=== PATIENT | female | born 1975 | race Caucasian/White ===

== ENCOUNTER 2023-10-25 12:31 | Inpatient (IN) | payer OTHER ==
[2023-10-25 15:27] LABS: BASO % 0.8 % (0-2.0); EOS % 7.4 % (0-4.5); HEMATOCRIT 36.6 % (32.4-45.2); HEMOGLOBIN 12.6 GM/dL (10.7-15.3); MCH 31.4 pg (25.7-33.7); MCHC 34.5 g/dl (32.0-36.0); MEAN CELL VOLUME 90.8 fl (80-96); MEAN PLT VOLUME 8.8 fl (7.5-11.1); NEUT % 47.8 % (42.8-82.8); PLATELET COUNT 110 10^3/uL (134-434); RBC 4.02 M/mm3 (3.60-5.2)
[2023-10-25 15:48] LABS: POTASSIUM 3.2 mmol/L (3.5-5.1)
[2023-10-25 15:49] LABS: INR 1.52 (0.83-1.09); PROTHROMBIN TIME (PATIENT) 17.6 SEC (9.7-13.0)
[2023-10-25 15:52] LABS: ALBUMIN 2.2 g/dl (3.4-5.0); BLOOD UREA NITROGEN 11.2 mg/dL (7-18)
[2023-10-25 15:55] LABS: CREATININE 0.8 mg/dL (0.55-1.3)
[2023-10-25] MEDS ORDERED: PIPERACILLIN/TAZOB 4.5 GM 4.5 GM/100 ML BAG IVPB ONE (15:55)
[2023-10-25 15:57] LABS: BILIRUBIN,TOTAL 3.1 mg/dL (0.2-1); TOT PROT 6.2 g/dl (6.4-8.2)
[2023-10-25 15:59] LABS: N-TERMINAL BNP 84.7 pg/ml (5-125)
[2023-10-25 16:04] LABS: ERYTHROCYTE SEDIMENTATION RATE 8 mm/hr (0-30)
[2023-10-25] MEDS: PIPERACILLIN/TAZOB 4.5 GM 4.5 GM in DEXTROSE 5%-WATER 100 ML IVPB ONE (16:16)
[2023-10-25] MEDS ORDERED: oxyCODONE HCL 10 MG SUSTAINED ACTING TABLET ONE (16:19)
[2023-10-25] MEDS: oxyCODONE HCL 5 MG TABLET PO PRN (16:25)
[2023-10-25] MEDS: FUROSEMIDE 40 MG/4 ML INJECTABLE VIAL IVPUSH SCH (16:27)
[2023-10-25] MEDS: VANCOMYCIN PREMIX 1.75 GM 1,750 MG/350 ML PIGGYBACK IVPB ONE (17:00)
[2023-10-25] MEDS ORDERED: POTASSIUM CHLORIDE ORAL LIQUID 20 MEQ/15 ML ONE (22:23)
[2023-10-25] MEDS ORDERED: oxyCODONE HCL 5 MG TABLET ONE (22:23)
[2023-10-25] MEDS ORDERED: HEPARIN NA (PORCINE) 5,000 UNITS/ML 1ML VIAL ONE (22:23)
[2023-10-25] MEDS: HEPARIN NA (PORCINE) 5,000 UNITS/ML 1ML VIAL SQ SCH (22:31)
[2023-10-25] MEDS: POTASSIUM CHLORIDE ORAL LIQUID 20 MEQ/15 ML PO SCH (22:31)
[2023-10-26] MEDS ORDERED: PIPERACILLIN/TAZOB 3.375 GM 3.375 GM/50 ML BAG IVPB ONE ×2 (01:33→09:19)
[2023-10-26] MEDS: ZOLPIDEM TARTRATE 5 MG TABLET PO ONE (01:35)
[2023-10-26] MEDS: PIPERACILLIN/TAZOB 3.375 GM 3.375 GM in DEXTROSE 5%-WATER - 50 ML IVPB SCH (01:47)
[2023-10-26] MEDS: cloNIDine HCL 0.1 MG TABLET PO ONE (01:52)
[2023-10-26] MEDS: clonazePAM 0.5 MG TABLET PO ONE (02:01)
[2023-10-26] MEDS ORDERED: oxyCODONE HCL 5 MG TABLET ONE (09:18)
[2023-10-26] MEDS: SPIRONOLACTONE 25 MG TABLET PO SCH (09:22)
[2023-10-26 12:55] LABS: POTASSIUM 4.1 mmol/L (3.5-5.1)
[2023-10-26 13:00] LABS: ALBUMIN 2.4 g/dl (3.4-5.0)
[2023-10-26 13:03] LABS: CREATININE 0.8 mg/dL (0.55-1.3)
[2023-10-26 13:05] LABS: BILIRUBIN,TOTAL 3.3 mg/dL (0.2-1); TOT PROT 6.6 g/dl (6.4-8.2)
[2023-10-26] MEDS ORDERED: ACETAMINOPHEN INJECTION 100 ML IVPB ONE (14:19)
[2023-10-26] MEDS ORDERED: LACTULOSE 20 GM/30 ML UDC (FOR ORAL USE ONLY) ONE (14:19)
[2023-10-26] MEDS: LACTULOSE 20 GM/30 ML UDC (FOR ORAL USE ONLY) PO SCH (14:25)
[2023-10-26] MEDS: ACETAMINOPHEN 1000 MG/100 ML BAG IVPB PRN (14:25)
[2023-10-26] MEDS: POTASSIUM CHLORIDE TABS 20 MEQ TABLET.ER (FP) PO SCH (17:24)
[2023-10-26 17:58] VITALS: BMI 33.0
[2023-10-26] MEDS: clonazePAM 0.5 MG TABLET PO SCH (21:06)
[2023-10-26] MEDS: CALAMINE 8% TOPICAL LOTION 177 ML BOTTLE TP SCH (21:06)
[2023-10-26] MEDS: RIFAXIMIN 550 MG TABLET PO SCH (21:07)
[2023-10-26] MEDS: propRANOLol HCL 10 MG TABLET PO SCH (22:39)
[2023-10-26] MEDS: TOPIRAMATE 25 MG TABLET PO SCH (22:59)
[2023-10-26] MEDS: PRAMIPEXOLE DIHYDROCHLORIDE 0.25 MG TABLET PO SCH (23:00)
[2023-10-27 10:11] LABS: TOTAL IRON BINDING CAPACITY 153 ug/dL (250-450)
[2023-10-27 14:43] LABS: IRON SERUM 112 ug/dL (50-175)
[2023-10-27] MEDS: MEROPENEM 1 GM in DEXTROSE 5%-WATER 100 ML IVPB SCH (14:52)
[2023-10-27] MEDS: VANCOMYCIN HCL 1,500 MG in DEXTROSE 5%-WATER - 500 ML IVPB SCH (14:52)
[2023-10-27] MEDS: VANCOMYCIN PREMIX 1.5 GM 1,500 MG/300 ML BAG IVPB SCH (16:30)
[2023-10-27] MEDS ORDERED: ONDANSETRON 4 MG/2 ML VIAL IVPB PRN (17:29)
[2023-10-28] MEDS ORDERED: PIPERACILLIN/TAZOBACTAM 3.375 GM VIAL IVPB ONE (02:57)
[2023-10-28] MEDS: ACETAMINOPHEN 1000 MG/100 ML BAG IVPB PRN (03:03)
[2023-10-28 09:02] LABS: BASO % 1.9 % (0-2.0); EOS % 8.2 % (0-4.5); HEMATOCRIT 35.4 % (32.4-45.2); HEMOGLOBIN 11.8 GM/dL (10.7-15.3); LYMPH % 43.1 % (8-40); MCH 30.7 pg (25.7-33.7); MCHC 33.2 g/dl (32.0-36.0); MEAN CELL VOLUME 92.4 fl (80-96); MEAN PLT VOLUME 8.8 fl (7.5-11.1); MONO % 7.1 % (3.8-10.2); NEUT % 39.7 % (42.8-82.8); PLATELET COUNT 96 10^3/uL (134-434); RBC 3.83 M/mm3 (3.60-5.2); WHITE BLOOD COUNT 4.1 K/mm3 (4.0-10.0)
[2023-10-28 09:19] LABS: POTASSIUM 3.7 mmol/L (3.5-5.1)
[2023-10-28 09:29] LABS: CREATININE 0.8 mg/dL (0.55-1.3)
[2023-10-28 09:30] LABS: BILIRUBIN,TOTAL 2.1 mg/dL (0.2-1); TOT PROT 5.6 g/dl (6.4-8.2)
[2023-10-28] MEDS: oxyCODONE HCL 5 MG TABLET PO PRN (22:08)
[2023-10-28] MEDS ORDERED: ACETAMINOPHEN 1000 MG/100 ML BAG IVPB PRN (22:10)
[2023-10-29] MEDS: AMOX TR/POT CLAV 875MG/125MG TABLETS (FP) PO SCH ×2 (08:34→16:36)
[2023-10-29] MEDS: NITROFURANTOIN MACROCRYSTAL 50 MG CAPSULE (FP) PO SCH (14:35)
[2023-10-29] MEDS: LINEZOLID 600 MG TABLET (RESTRICTED TO ID) PO SCH (15:25)
[2023-10-29] MEDS: ERTAPENEM SODIUM 1 GM VIAL IM SCH (15:28)
[2023-10-29] MEDS: SERTRALINE HCL 50 MG TABLET (FP) PO SCH (18:17)
[2023-10-29] MEDS: ONDANSETRON *ODT* 4 MG TABLET SL ONE (19:57)
[2023-10-30 09:23] LABS: BASO % 1.3 % (0-2.0); EOS % 8.6 % (0-4.5); HEMATOCRIT 35.5 % (32.4-45.2); HEMOGLOBIN 12.2 GM/dL (10.7-15.3); LYMPH % 42.8 % (8-40); MCH 31.2 pg (25.7-33.7); MCHC 34.3 g/dl (32.0-36.0); MEAN CELL VOLUME 90.9 fl (80-96); MEAN PLT VOLUME 8.9 fl (7.5-11.1); MONO % 10.1 % (3.8-10.2); NEUT % 37.2 % (42.8-82.8); PLATELET COUNT 95 10^3/uL (134-434); RBC 3.91 M/mm3 (3.60-5.2); RDW 15.1 % (11.6-15.6); WHITE BLOOD COUNT 4.5 K/mm3 (4.0-10.0)
[2023-10-30 09:51] LABS: POTASSIUM 3.7 mmol/L (3.5-5.1)
[2023-10-30 09:56] LABS: BLOOD UREA NITROGEN 14.4 mg/dL (7-18); CALCIUM 8.6 mg/dL (8.5-10.1)
[2023-10-30 09:59] LABS: CREATININE 0.7 mg/dL (0.55-1.3)
[2023-10-30 10:00] LABS: BILIRUBIN,TOTAL 2.4 mg/dL (0.2-1)
[2023-10-30 10:01] LABS: ALBUMIN 2.1 g/dl (3.4-5.0); TOT PROT 5.8 g/dl (6.4-8.2)
[2023-10-30] MEDS: ONDANSETRON 4 MG TABLET PO PRN (12:06)
[2023-10-30] MEDS ORDERED: LIDOCAINE HCL 1%, 10 MG/ML (20ML VIAL) ONE (14:52)
[2023-10-30] MEDS: SUMAtriptan SUCCINATE 50 MG TABLET PO ONE (19:30)
[2023-10-30] MEDS: ACETAMINOPHEN 500 MG TABLET (FP) PO ONE (21:18)
[2023-10-30] MEDS: clonazePAM 0.5 MG TABLET PO ONE (22:21)
[2023-10-31 12:59] VITALS: PULSE 58
[2023-10-31 20:58] VITALS: BP 113/74; TEMP 97.7
[2023-10-31 21:33] VITALS: RESP 20
== END 2023-11-01 03:25 | DRG 603 ==
LOC: JER 12:31 → JERBED 14:39 → J5S 10-26 16:39 → J8W 10-31 14:07
PROVIDERS: ADMIT Internal Medicine; ATTEND Internal Medicine
DX: L03.115 Cellulitis of right lower limb (principal); F11.20 Opioid dependence, uncomplicated; L03.116 Cellulitis of left lower limb; J44.9 Chronic obstructive pulmonary disease, unspecified; E11.9 Type 2 diabetes mellitus without complications; F41.8 Other specified anxiety disorders; E78.5 Hyperlipidemia, unspecified; F31.9 Bipolar disorder, unspecified; B18.2 Chronic viral hepatitis C; G43.909 Migraine, unspecified, not intractable, without status migrainosus; E07.9 Disorder of thyroid, unspecified; D69.6 Thrombocytopenia, unspecified; K74.60 Unspecified cirrhosis of liver; E66.9 Obesity, unspecified; Z68.36 Body mass index [BMI] 36.0-36.9, adult; E87.6 Hypokalemia; B96.20 Unspecified Escherichia coli [E. coli] as the cause of diseases classified elsewhere; G25.81 Restless legs syndrome; S82.831A Other fracture of upper and lower end of right fibula, initial encounter for closed fracture; X58.XXXA Exposure to other specified factors, initial encounter; Y93.9 Activity, unspecified; Y92.9 Unspecified place or not applicable; Y99.9 Unspecified external cause status
CPT/HCPCS: 0241U-QW; 36415; 73590-TC-LT-FY; 73590-TC-RT-FY; 73610-TC-RT-FY; 76700-TC; 80053; 80061; 82140; 82248; 82550; 82607; 83036; 83540; 83550; 83605; 83880; 84443; 84484; 85025; 85610; 85651; 85730; 86140; 86705; 87040; 87070; 87186; 87205; 87340; 87522; 87635; 93005; 93010; 93306-TC; 93925-TC; 93970-TC; 99285-25; G0463-25; J0131; J1644; J3370; Q0162

== ENCOUNTER 2023-12-21 18:56 | Inpatient (IN) | payer OTHER ==
[2023-12-21 19:55] LABS: BASO % 1.1 % (0-2.0); HEMATOCRIT 37.5 % (32.4-45.2); HEMOGLOBIN 12.8 GM/dL (10.7-15.3); LYMPH % 32.3 % (8-40); MCH 30.8 pg (25.7-33.7); MCHC 34.2 g/dl (32.0-36.0); MEAN CELL VOLUME 90.1 fl (80-96); MEAN PLT VOLUME 9.2 fl (7.5-11.1); MONO % 8.2 % (3.8-10.2); NEUT % 54.4 % (42.8-82.8); PLATELET COUNT 149 10^3/uL (134-434); RBC 4.16 M/mm3 (3.60-5.2); RDW 14.4 % (11.6-15.6); WHITE BLOOD COUNT 4.6 K/mm3 (4.0-10.0)
[2023-12-21 20:01] LABS: INR 1.28 (0.83-1.09); PROTHROMBIN TIME (PATIENT) 14.4 SEC (9.7-13.0)
[2023-12-21] MEDS ORDERED: DICYCLOMINE HCL 10 MG CAPSULE ONE (20:02)
[2023-12-21 20:10] LABS: CHLORIDE 101 mmol/L (98-107); POTASSIUM 4.8 mmol/L (3.5-5.1); SODIUM 138 mmol/L (136-145)
[2023-12-21 20:12] LABS: CALCIUM 8.7 mg/dL (8.5-10.1)
[2023-12-21 20:13] LABS: ALBUMIN 2.3 g/dl (3.4-5.0); ANION GAP 4 mmol/L (4-13); CO2 33 mmol/L (21-32); GLUCOSE,RANDOM 136 mg/dL (74-106)
[2023-12-21 20:16] LABS: CREATININE 0.9 mg/dL (0.55-1.3); SGOT/AST 34 U/L (15-37); SGPT/ALT 18 U/L (13-61)
[2023-12-21 20:18] LABS: BILIRUBIN,TOTAL 1.3 mg/dL (0.2-1); TOT PROT 6.7 g/dl (6.4-8.2)
[2023-12-21] MEDS: DICYCLOMINE HCL 20 MG TABLET PO ONE (20:18)
[2023-12-21 20:19] LABS: ALK PHOS 100 U/L (45-117)
[2023-12-21 22:11] LABS: URINE BARBITURATES NEGATIVE (NEGATIVE)
[2023-12-21 22:12] LABS: COCAINE, UR NEGATIVE (NEGATIVE); METHADONE, UR NEGATIVE (NEGATIVE); OPIATES, URI NEGATIVE (NEGATIVE); PHENCYCLIDINE,URINE NEGATIVE (NEGATIVE)
[2023-12-21 22:17] LABS: URINE AMPHETAMINES NEGATIVE (NEGATIVE); URINE BENZODIAZEPINES POSITIVE (NEGATIVE)
[2023-12-21] MEDS: PRAMIPEXOLE DIHYDROCHLORIDE 0.25 MG TABLET PO SCH (22:17)
[2023-12-21] MEDS: propRANOLol HCL 10 MG TABLET PO SCH (22:17)
[2023-12-21] MEDS: LACTULOSE 20 GM/30 ML UDC (FOR ORAL USE ONLY) PO SCH (22:17)
[2023-12-21] MEDS: MELATONIN 5 MG TABLETS PO SCH (22:17)
[2023-12-21] MEDS: BUDESONIDE/FORMETEROL FUMARATE 80/4.5 mcg INHALER IH SCH (22:17)
[2023-12-21] MEDS ORDERED: clonazePAM 0.5 MG TABLET ONE (22:18)
[2023-12-21] MEDS: RIFAXIMIN 550 MG TABLET PO SCH (22:18)
[2023-12-21] MEDS: TOPIRAMATE 25 MG TABLET PO SCH (22:18)
[2023-12-21] MEDS: clonazePAM 0.5 MG TABLET PO SCH (22:22)
[2023-12-22 03:34] VITALS: RESP 18; BMI 34.2
[2023-12-22 06:16] VITALS: BP 102/52; PULSE 59; TEMP 97.5
[2023-12-22] MEDS ORDERED: DESVENLAFAXINE SUCCINATE 25 MG PO SCH (10:00)
[2023-12-22] MEDS: THIAMINE 100 MG TABLET PO SCH (10:16)
[2023-12-22] MEDS: SPIRONOLACTONE 25 MG TABLET PO SCH (10:16)
[2023-12-22] MEDS ORDERED: oxyCODONE HCL 5 MG TABLET PO PRN (10:36)
[2023-12-22] MEDS: NITROFURANTOIN MONOHYD/M-CRYST 100 MG CAPSULE PO SCH (11:48)
== END 2023-12-22 12:36 | DRG 897 ==
LOC: JER 18:56 → JERBED 19:12 → J5S 22:54
PROVIDERS: ADMIT Internal Medicine; ATTEND Internal Medicine
DX: F11.10 Opioid abuse, uncomplicated (principal); G43.909 Migraine, unspecified, not intractable, without status migrainosus; F31.9 Bipolar disorder, unspecified; K74.60 Unspecified cirrhosis of liver; B19.20 Unspecified viral hepatitis C without hepatic coma; E11.9 Type 2 diabetes mellitus without complications; B18.2 Chronic viral hepatitis C; J44.9 Chronic obstructive pulmonary disease, unspecified; E78.5 Hyperlipidemia, unspecified; F41.9 Anxiety disorder, unspecified; G89.29 Other chronic pain
CPT/HCPCS: 36415; 71045-TC-FY; 80053; 80307; 85025; 85610; 85730; 87086; 87186; 93005; 93010; 99285-25

== ENCOUNTER 2024-01-05 03:00 | Inpatient (IN) | payer OTHER ==
[2024-01-05] MEDS ORDERED: ACETAMINOPHEN INJECTION 100 ML IVPB ONE (03:53)
[2024-01-05] MEDS: ACETAMINOPHEN 1000 MG/100 ML BAG IVPB ONE (05:05)
[2024-01-05 05:26] LABS: BASO % 0.1 % (0-2.0); HEMATOCRIT 39.9 % (32.4-45.2); HEMOGLOBIN 13.7 GM/dL (10.7-15.3); LYMPH % 7.1 % (8-40); MCH 30.7 pg (25.7-33.7); MCHC 34.3 g/dl (32.0-36.0); MEAN CELL VOLUME 89.6 fl (80-96); MEAN PLT VOLUME 8.2 fl (7.5-11.1); NEUT % 89.8 % (42.8-82.8); PLATELET COUNT 137 10^3/uL (134-434); RBC 4.46 M/mm3 (3.60-5.2); RDW 15.1 % (11.6-15.6); WHITE BLOOD COUNT 13.1 K/mm3 (4.0-10.0)
[2024-01-05 05:43] LABS: EPI CELLS 32 /uL (0-25.1); HYALINE CASTS 1 /uL (0-3.1); URINE APPEARANCE CLOUDY; URINE BACTERIA >9,000 /uL (0-1359); URINE BILIRUBIN 1+ (NEGATIVE); URINE COLOR DK YELLOW; URINE GLUCOSE (UA) NEGATIVE (NEGATIVE); URINE KETONE NEGATIVE (NEGATIVE); URINE LEUK ESTERASE 1+ (NEGATIVE); URINE NITRITE POSITIVE (NEGATIVE); URINE PROTEIN NEGATIVE (NEGATIVE); URINE RBC 71 /uL (0-23.9); URINE WBC 43 /uL (0-25.8)
[2024-01-05 05:44] LABS: POTASSIUM 3.6 mmol/L (3.5-5.1)
[2024-01-05 05:46] LABS: ALBUMIN 2.4 g/dl (3.4-5.0); CALCIUM 8.8 mg/dL (8.5-10.1)
[2024-01-05 05:47] LABS: BLOOD UREA NITROGEN 14.2 mg/dL (7-18)
[2024-01-05 05:49] LABS: CREATININE 0.9 mg/dL (0.55-1.3)
[2024-01-05 05:51] LABS: TOT PROT 7.9 g/dl (6.4-8.2)
[2024-01-05 05:52] LABS: BILIRUBIN,TOTAL 4.3 mg/dL (0.2-1)
[2024-01-05] MEDS ORDERED: PIPERACILLIN/TAZOB 3.375 GM 3.375 GM/50 ML BAG IVPB ONE (06:01)
[2024-01-05] MEDS ORDERED: CLINDAMYCIN 600MG PREMIX IVPB 600 MG/50 ML BAG IVPB ONE (06:01)
[2024-01-05] MEDS: CLINDAMYCIN 600MG PREMIX IVPB 600 MG/50 ML BAG IVPB ONE (06:05)
[2024-01-05] MEDS: PIPERACILLIN/TAZOB 3.375 GM 3.375 GM in DEXTROSE 5%-WATER - 50 ML IVPB ONE (06:05)
[2024-01-05 07:00] LABS: INR 1.69 (0.83-1.09); PROTHROMBIN TIME (PATIENT) 18.8 SEC (9.7-13.0)
[2024-01-05 10:40] VITALS: BMI 31.3
[2024-01-05] MEDS: INSULIN ASPART SLIDING SCALE (NOVOLOG) 1 VIAL SQ SCH (11:34)
[2024-01-05] MEDS: oxyCODONE HCL 5 MG TABLET PO PRN (14:32)
[2024-01-05] MEDS: TOPIRAMATE 25 MG TABLET PO SCH (22:13)
[2024-01-05] MEDS: ZOLPIDEM TARTRATE 5 MG TABLET PO ONE (22:13)
[2024-01-06 07:42] LABS: BASO % 0.8 % (0-2.0); EOS % 1.9 % (0-4.5); HEMATOCRIT 35.7 % (32.4-45.2); HEMOGLOBIN 12.3 GM/dL (10.7-15.3); LYMPH % 20.7 % (8-40); MCH 30.4 pg (25.7-33.7); MCHC 34.5 g/dl (32.0-36.0); MEAN CELL VOLUME 87.9 fl (80-96); MEAN PLT VOLUME 8.2 fl (7.5-11.1); MONO % 6.6 % (3.8-10.2); PLATELET COUNT 131 10^3/uL (134-434); RBC 4.06 M/mm3 (3.60-5.2); RDW 14.7 % (11.6-15.6); WHITE BLOOD COUNT 8.1 K/mm3 (4.0-10.0)
[2024-01-06 07:58] LABS: ALBUMIN 2.2 g/dl (3.4-5.0); BLOOD UREA NITROGEN 12.9 mg/dL (7-18); CALCIUM 8.4 mg/dL (8.5-10.1); MAGNESIUM 1.9 mg/dL (1.8-2.4)
[2024-01-06 08:01] LABS: CREATININE 0.8 mg/dL (0.55-1.3); PHOSPHOROUS 3.2 mg/dL (2.5-4.9)
[2024-01-06 08:03] LABS: TOT PROT 7.3 g/dl (6.4-8.2)
[2024-01-06 08:25] LABS: BILIRUBIN,TOTAL 1.7 mg/dL (0.2-1)
[2024-01-06] MEDS: SPIRONOLACTONE 25 MG TABLET PO SCH (10:13)
[2024-01-06] MEDS: SERTRALINE HCL 50 MG TABLET (FP) PO SCH (10:13)
[2024-01-06] MEDS ORDERED: SUMAtriptan SUCCINATE 50 MG TABLET PO PRN (10:19)
[2024-01-06] MEDS: POTASSIUM CHLORIDE TABS 20 MEQ TABLET.ER (FP) PO SCH (10:41)
[2024-01-06] MEDS: clonazePAM 0.5 MG TABLET PO SCH (10:41)
[2024-01-06] MEDS: MAGNESIUM 1GM/D5W - 1 GM/100 ML IVPB IVPB ONE (11:14)
[2024-01-06] MEDS: CEFTRIAXONE 1 GM in DEXTROSE 5%-WATER - 50 ML IVPB SCH (14:40)
[2024-01-06] MEDS: LACTULOSE 20 GM/30 ML UDC (FOR ORAL USE ONLY) PO SCH (15:42)
[2024-01-06] MEDS: ALBUTEROL SO4 HFA INHALER IH PRN (19:10)
[2024-01-06] MEDS ORDERED: INSULIN (NOVOLOG) ASPART 100 UNITS/ML 10ML VIAL ONE (21:08)
[2024-01-06] MEDS: propRANOLol HCL 10 MG TABLET PO SCH (21:43)
[2024-01-06] MEDS: ZOLPIDEM TARTRATE 5 MG TABLET PO ONE (22:38)
[2024-01-07] MEDS: THIAMINE 100 MG TABLET PO SCH (11:03)
[2024-01-07 13:21] LABS: BASO % 0.9 % (0-2.0); EOS % 7.1 % (0-4.5); HEMATOCRIT 36.5 % (32.4-45.2); HEMOGLOBIN 12.4 GM/dL (10.7-15.3); MCH 30.4 pg (25.7-33.7); MEAN CELL VOLUME 89.4 fl (80-96); MEAN PLT VOLUME 8.4 fl (7.5-11.1); MONO % 8.2 % (3.8-10.2); NEUT % 51.8 % (42.8-82.8); PLATELET COUNT 151 10^3/uL (134-434); RBC 4.09 M/mm3 (3.60-5.2); RDW 15.9 % (11.6-15.6); WHITE BLOOD COUNT 5.9 K/mm3 (4.0-10.0)
[2024-01-07 13:54] LABS: CALCIUM 8.7 mg/dL (8.5-10.1)
[2024-01-07 13:55] LABS: BLOOD UREA NITROGEN 10.5 mg/dL (7-18)
[2024-01-07 13:58] LABS: CREATININE 0.8 mg/dL (0.55-1.3)
[2024-01-08 06:18] VITALS: RESP 18
[2024-01-08 15:10] LABS: BASO % 0.8 % (0-2.0); EOS % 4.7 % (0-4.5); HEMATOCRIT 41.3 % (32.4-45.2); HEMOGLOBIN 14.1 GM/dL (10.7-15.3); LYMPH % 31.7 % (8-40); MCHC 34.2 g/dl (32.0-36.0); MEAN CELL VOLUME 90.6 fl (80-96); MEAN PLT VOLUME 8.5 fl (7.5-11.1); MONO % 7.7 % (3.8-10.2); NEUT % 55.1 % (42.8-82.8); PLATELET COUNT 182 10^3/uL (134-434); RBC 4.56 M/mm3 (3.60-5.2); RDW 16.2 % (11.6-15.6); WHITE BLOOD COUNT 7.5 K/mm3 (4.0-10.0)
[2024-01-08 15:31] LABS: CALCIUM 9.1 mg/dL (8.5-10.1)
[2024-01-08 15:32] LABS: ALBUMIN 2.3 g/dl (3.4-5.0); BLOOD UREA NITROGEN 9.9 mg/dL (7-18)
[2024-01-08 15:36] LABS: BILIRUBIN,TOTAL 1.4 mg/dL (0.2-1); TOT PROT 7.8 g/dl (6.4-8.2)
[2024-01-08 15:39] LABS: CREATININE 0.7 mg/dL (0.55-1.3)
[2024-01-08] MEDS: MEROPENEM 1 GM in DEXTROSE 5%-WATER 100 ML IVPB SCH (18:45)
[2024-01-08] MEDS: ZOLPIDEM TARTRATE 5 MG TABLET PO ONE (21:35)
[2024-01-09] MEDS: SUMAtriptan SUCCINATE 50 MG TABLET PO PRN (10:25)
[2024-01-09] MEDS: ZOLPIDEM TARTRATE 5 MG TABLET PO ONE (21:52)
[2024-01-10 11:12] LABS: HEMATOCRIT 40.9 % (32.4-45.2); HEMOGLOBIN 14.2 GM/dL (10.7-15.3); MCH 31.1 pg (25.7-33.7); MCHC 34.7 g/dl (32.0-36.0); MEAN CELL VOLUME 89.8 fl (80-96); MEAN PLT VOLUME 8.6 fl (7.5-11.1); PLATELET COUNT 171 10^3/uL (134-434); RBC 4.56 M/mm3 (3.60-5.2); RDW 16.4 % (11.6-15.6); WHITE BLOOD COUNT 7.3 K/mm3 (4.0-10.0)
[2024-01-10 11:37] LABS: POTASSIUM 4.5 mmol/L (3.5-5.1)
[2024-01-10 11:38] LABS: CALCIUM 8.8 mg/dL (8.5-10.1)
[2024-01-10 11:39] LABS: BLOOD UREA NITROGEN 10.9 mg/dL (7-18)
[2024-01-10 11:42] LABS: CREATININE 0.7 mg/dL (0.55-1.3)
[2024-01-10] MEDS ORDERED: INSULIN (NOVOLOG) ASPART 100 UNITS/ML 10ML VIAL ONE (21:19)
[2024-01-10] MEDS: DOXYCYCLINE HYCLATE 100 MG CAPSULE PO SCH (21:47)
[2024-01-10] MEDS: ZOLPIDEM TARTRATE 5 MG TABLET PO ONE (21:48)
[2024-01-10 22:15] VITALS: TEMP 97.3
[2024-01-11 11:04] VITALS: BP 116/94; PULSE 63
== END 2024-01-11 13:22 | DRG 863 ==
LOC: JER 03:00 → JERBED 08:23 → J7W 09:52
PROVIDERS: ADMIT Internal Medicine; ATTEND Internal Medicine
DX: T81.41XA Infection following a procedure, superficial incisional surgical site, initial encounter (principal); L03.115 Cellulitis of right lower limb; F11.20 Opioid dependence, uncomplicated; N39.0 Urinary tract infection, site not specified; Z21 Asymptomatic human immunodeficiency virus [HIV] infection status; B96.20 Unspecified Escherichia coli [E. coli] as the cause of diseases classified elsewhere; J44.9 Chronic obstructive pulmonary disease, unspecified; E78.5 Hyperlipidemia, unspecified; E11.9 Type 2 diabetes mellitus without complications; F41.8 Other specified anxiety disorders; I50.9 Heart failure, unspecified; F31.9 Bipolar disorder, unspecified; E07.9 Disorder of thyroid, unspecified; K73.9 Chronic hepatitis, unspecified; G89.29 Other chronic pain; Y83.8 Other surgical procedures as the cause of abnormal reaction of the patient, or of later complication, without mention of misadventure at the time of the procedure
CPT/HCPCS: 36415; 70450-TC; 73590-TC-RT-FY; 80048; 80053; 81003; 82962; 83735; 84100; 84443; 84703; 85025; 85027; 85610; 86140; 86850; 86900; 86901; 87040; 87086; 87186; 93005; 93010; 93971-TC; 97116-GP; 97161-GP; 99285-25; J0131

== ENCOUNTER 2024-02-10 22:58 | Emergency (ER) | payer OTHER ==
[2024-02-10 23:16] VITALS: BP 103/55; PULSE 63; RESP 20; TEMP 98.4; BMI 39.8
[2024-02-11 02:40] LABS: POTASSIUM 3.7 mmol/L (3.5-5.1)
[2024-02-11 02:46] LABS: CREATININE 0.8 mg/dL (0.55-1.3)
[2024-02-11 02:47] LABS: BILIRUBIN,TOTAL 1.1 mg/dL (0.2-1); TOT PROT 6.1 g/dl (6.4-8.2)
[2024-02-11] MEDS: DALBAVANCIN HCL 1,500 MG in DEXTROSE 5%-WATER - 500 ML IVPB ONE (03:54)
[2024-02-11] MEDS ORDERED: oxyCODONE HCL 5 MG TABLET ONE (06:07)
[2024-02-11] MEDS: oxyCODONE HCL 5 MG TABLET PO ONE (06:12)
== END 2024-02-11 06:14 ==
LOC: JER 22:58
DX: L03.115 Cellulitis of right lower limb (principal); L03.116 Cellulitis of left lower limb; M79.661 Pain in right lower leg; M79.662 Pain in left lower leg
CPT/HCPCS: 36415; 80053; 93970-TC; 99284-25; J0875

== ENCOUNTER 2024-04-04 18:07 | Observation (INO) | payer OTHER ==
[2024-04-04 21:55] LABS: EOS % 3.7 % (0-4.5); HEMATOCRIT 41.1 % (32.4-45.2); HEMOGLOBIN 13.7 GM/dL (10.7-15.3); MCH 29.8 pg (25.7-33.7); MCHC 33.4 g/dl (32.0-36.0); MEAN CELL VOLUME 89.1 fl (80-96); MEAN PLT VOLUME 9.8 fl (7.5-11.1); MONO % 8.1 % (3.8-10.2); NEUT % 58.2 % (42.8-82.8); PLATELET COUNT 90 10^3/uL (134-434); RBC 4.62 M/mm3 (3.60-5.2); RDW 15.6 % (11.6-15.6); WHITE BLOOD COUNT 5.2 K/mm3 (4.0-10.0)
[2024-04-04 22:19] LABS: POTASSIUM 3.6 mmol/L (3.5-5.1)
[2024-04-04 22:22] LABS: ALBUMIN 2.5 g/dl (3.4-5.0); BLOOD UREA NITROGEN 11.5 mg/dL (7-18); CALCIUM 8.4 mg/dL (8.5-10.1)
[2024-04-04 22:23] LABS: MAGNESIUM 1.9 mg/dL (1.8-2.4)
[2024-04-04 22:26] LABS: CREATININE 0.9 mg/dL (0.55-1.3)
[2024-04-04 22:27] LABS: BILIRUBIN,TOTAL 1.8 mg/dL (0.2-1); PHOSPHOROUS 2.7 mg/dL (2.5-4.9); TOT PROT 6.5 g/dl (6.4-8.2)
[2024-04-04 22:30] LABS: N-TERMINAL BNP 184.5 pg/ml (5-125)
[2024-04-05] MEDS ORDERED: ALBUTEROL SO4 HFA INHALER IH PRN (05:55)
[2024-04-05] MEDS ORDERED: PATIENT'S OWN MEDICATION (NON-FORMULARY) (Acetaminophen [Tylenol] 325 MG Capsule) PO PRN (05:55)
[2024-04-05] MEDS ORDERED: SENNOSIDES 8.6MG TABLET (FP) PO PRN (05:55)
[2024-04-05] MEDS ORDERED: SUMAtriptan SUCCINATE 50 MG TABLET PO PRN (05:55)
[2024-04-05] MEDS ORDERED: PATIENT'S OWN MEDICATION (NON-FORMULARY) (Oxycodone Hcl [Oxycodone Hcl] 10 MG Tablet) PO PRN (05:55)
[2024-04-05] MEDS ORDERED: hydrOXYzine PAMOATE 25 MG CAPSULE (FP) PO PRN (05:55)
[2024-04-05] MEDS ORDERED: NALOXONE (NYS OPIOID OVERDOSE PROGRAM) 4 MG/0.1 ML SPRAY NS PRN (06:00)
[2024-04-05] MEDS ORDERED: GABAPENTIN 300 MG CAPSULE ONE (06:10)
[2024-04-05 06:23] LABS: COCAINE, UR NEGATIVE (NEGATIVE); METHADONE, UR NEGATIVE (NEGATIVE); PHENCYCLIDINE,URINE NEGATIVE (NEGATIVE); URINE AMPHETAMINES NEGATIVE (NEGATIVE); URINE BARBITURATES NEGATIVE (NEGATIVE)
[2024-04-05] MEDS ORDERED: ACETAMINOPHEN 325 MG TABLET (FP) ONE (06:33)
[2024-04-05] MEDS ORDERED: ACETAMINOPHEN 325 MG TABLET (FP) PO PRN (06:35)
[2024-04-05 06:49] LABS: OPIATES, URI POSITIVE (NEGATIVE); URINE BENZODIAZEPINES POSITIVE (NEGATIVE)
[2024-04-05 06:54] LABS: BASO % 1.3 % (0-2.0); EOS % 4.3 % (0-4.5); HEMATOCRIT 42.5 % (32.4-45.2); HEMOGLOBIN 14.5 GM/dL (10.7-15.3); LYMPH % 27.2 % (8-40); MCH 30.5 pg (25.7-33.7); MCHC 34.2 g/dl (32.0-36.0); MEAN CELL VOLUME 89.1 fl (80-96); MEAN PLT VOLUME 9.5 fl (7.5-11.1); MONO % 6.9 % (3.8-10.2); NEUT % 60.3 % (42.8-82.8); PLATELET COUNT 88 10^3/uL (134-434); POTASSIUM 3.9 mmol/L (3.5-5.1); RBC 4.77 M/mm3 (3.60-5.2); RDW 15.3 % (11.6-15.6); WHITE BLOOD COUNT 4.8 K/mm3 (4.0-10.0)
[2024-04-05 06:58] LABS: CALCIUM 8.4 mg/dL (8.5-10.1)
[2024-04-05 06:59] LABS: ALBUMIN 2.5 g/dl (3.4-5.0); BLOOD UREA NITROGEN 11.7 mg/dL (7-18)
[2024-04-05] MEDS: ACETAMINOPHEN 325 MG TABLET (FP) PO ONE (07:00)
[2024-04-05] MEDS: INSULIN ASPART SLIDING SCALE (NOVOLOG) 1 VIAL SQ SCH (07:00)
[2024-04-05] MEDS ORDERED: INSULIN ASPART SLIDING SCALE (NOVOLOG) 1 VIAL SQ SCH (07:00)
[2024-04-05 07:02] LABS: CREATININE 0.9 mg/dL (0.55-1.3); PHOSPHOROUS 3.1 mg/dL (2.5-4.9)
[2024-04-05 07:03] LABS: BILIRUBIN,TOTAL 1.8 mg/dL (0.2-1); TOT PROT 6.6 g/dl (6.4-8.2)
[2024-04-05] MEDS: LACTULOSE 20 GM/30 ML UDC (FOR ORAL USE ONLY) PO SCH (07:32)
[2024-04-05 08:23] LABS: HIV INTERPRETATION NEGATIVE (NEGATIVE)
[2024-04-05] MEDS: GABAPENTIN 300 MG CAPSULE PO SCH (08:35)
[2024-04-05] MEDS: PANTOPRAZOLE 40 MG TABLET PO SCH (08:35)
[2024-04-05 09:07] LABS: PLATELET ESTIMATE DECREASED
[2024-04-05 09:09] VITALS: RESP 17
[2024-04-05] MEDS ORDERED: DESVENLAFAXINE SUCCINATE 25 MG PO SCH (10:00)
[2024-04-05] MEDS: TOPIRAMATE 25 MG TABLET PO SCH (11:01)
[2024-04-05] MEDS: RIFAXIMIN 550 MG TABLET PO SCH (11:01)
[2024-04-05] MEDS: PRAMIPEXOLE DIHYDROCHLORIDE 0.25 MG TABLET PO SCH (11:01)
[2024-04-05] MEDS: SERTRALINE HCL 50 MG TABLET (FP) PO SCH (11:02)
[2024-04-05] MEDS: oxyCODONE HCL 5 MG TABLET PO PRN (11:02)
[2024-04-05] MEDS: propRANOLol HCL 10 MG TABLET PO SCH (11:02)
[2024-04-05] MEDS: THIAMINE 100 MG TABLET PO SCH (11:02)
[2024-04-05] MEDS: FERROUS SO4 325 MG TABLET (FP) PO SCH (11:03)
[2024-04-05] MEDS: SPIRONOLACTONE 25 MG TABLET PO SCH (11:03)
[2024-04-05] MEDS: MULTIVITAMINS (DAILY MVI) TABLET (FP) PO SCH (11:04)
[2024-04-05] MEDS: FOLIC ACID 1 MG TABLET (FP) PO SCH (11:04)
[2024-04-05] MEDS: POTASSIUM CHLORIDE TABS 20 MEQ TABLET.ER (FP) PO SCH (11:10)
[2024-04-05] MEDS: BUMETANIDE 1 MG TABLET PO SCH (13:12)
[2024-04-05] MEDS: BUDESONIDE/FORMETEROL FUMARATE 160/4.5 mcg INHALER IH SCH (13:13)
[2024-04-05 14:40] VITALS: BP 130/98; PULSE 59; TEMP 98.2
[2024-04-05 15:17] VITALS: BMI 36.4
[2024-04-05] MEDS: traMADol HCL 50 MG TABLET PO ONE (16:22)
[2024-04-05] MEDS ORDERED: ZOLPIDEM TARTRATE 5 MG TABLET PO PRN (22:00)
[2024-04-05] MEDS ORDERED: MELATONIN 5 MG TABLETS PO SCH (22:00)
[2024-04-05] MEDS ORDERED: ALBUTEROL SO4 HFA INHALER IH SCH (22:00)
== END 2024-04-05 16:45 ==
LOC: JER 18:07 → JERBED 04-05 01:19 → J7W 04-05 08:48
PROVIDERS: ADMIT Internal Medicine; ATTEND Nurse Practitioner Acute Care
DX: F31.9 Bipolar disorder, unspecified (principal); W18.39XA Other fall on same level, initial encounter; Y93.89 Activity, other specified; Y92.099 Unspecified place in other non-institutional residence as the place of occurrence of the external cause; R45.851 Suicidal ideations; K74.60 Unspecified cirrhosis of liver; I10 Essential (primary) hypertension; E11.9 Type 2 diabetes mellitus without complications; L30.9 Dermatitis, unspecified; F90.9 Attention-deficit hyperactivity disorder, unspecified type; E07.9 Disorder of thyroid, unspecified; L03.818 Cellulitis of other sites; Z87.891 Personal history of nicotine dependence; Z88.8 Allergy status to other drugs, medicaments and biological substances; Z86.19 Personal history of other infectious and parasitic diseases; Z87.440 Personal history of urinary (tract) infections; F19.10 Other psychoactive substance abuse, uncomplicated
CPT/HCPCS: 36415; 70450-TC; 71260-TC; 72125-TC; 74177-TC; 80053; 80307; 82962; 83735; 83880; 84100; 84484; 84702; 85025; 86803; 87389; 87522; 93005; 93010; 99285-25; G0378; Q9967

== ENCOUNTER 2024-04-08 15:24 | Emergency (ER) | payer OTHER ==
[2024-04-08 16:33] VITALS: BP 111/48; PULSE 54; RESP 18; TEMP 97.9; BMI 33.2
== END 2024-04-08 18:43 | disposition home or self-care (01) ==
LOC: JER 15:24
DX: F31.9 Bipolar disorder, unspecified (principal)
CPT/HCPCS: 99283-25